=== PATIENT | male | born 1955 | race Caucasian/White ===

== ENCOUNTER → 2024-10-28 | Outpatient (CLI) | payer MEDICARE, MEDICAID, SELFPAY ==
--- NOTE | 2024-10-28 08:01 | CT_ITS ---
PROCEDURE: CHEST WITHOUT CONTRAST 10/28/2024 REASON FOR EXAM: LUNG NODULE History of COPD. Long-time smoker. TECHNIQUE: Chest CT without contrast. Coronal and Sagittal reconstruction series were provided. One or more dose reduction techniques were used (e.g., Automated exposure control, adjustment of the mA and/or kV according to patient size, use of iterative reconstruction technique RADIATION DOSE SUMMARY: CTDlvol: 19.85 mGy DLP: 753.83 mGycm COMPARISON: None FINDINGS: Hardware: None Lymph nodes: Small benign-appearing mediastinal lymph nodes. Heart and Vasculature: The heart is not enlarged. Atherosclerotic calcifications of the thoracic aorta. Thoracic aorta and pulmonary arteries have normal contours; noncontrast technique limits evaluation. Coronary Artery Calcifications: Present Lungs and Airways: There is a 6.3 mm non calcified nodule in the posterolateral aspect of the left lower lobe as seen on axial image number 72 and coronal image number 181. Mild scarring at the lung bases. Pleura: No pleural effusion. Upper Abdomen: Hiatal hernia. Bones: Degenerative changes of the thoracic spine. CT/Chest without Contrast IMPRESSION: Coronary artery calcification (CAC) is is present 6.3 mm noncalcified nodule in the posterolateral aspect of the left lower lobe as seen on axial image number 72 six-month follow-up examination recommended. Reading Location: [place] [id number]
== END | disposition home or self-care (01) ==
LOC: CT 07:56
PROVIDERS: PCP General Practice; Referring Provider Internal Medicine Critical Care Medicine; Visit Provider Internal Medicine Critical Care Medicine
DX: R91.1 Solitary pulmonary nodule (principal); R06.09 Other forms of dyspnea; F17.210 Nicotine dependence, cigarettes, uncomplicated
CPT/HCPCS: 71250

== ENCOUNTER → 2024-10-31 | Outpatient (CLI) | payer MEDICARE, MEDICAID, SELFPAY | END | disposition home or self-care (01) | LOC: PSN 09:07 | PROVIDERS: PCP General Practice; Referring Provider Internal Medicine Critical Care Medicine; Visit Provider Internal Medicine Critical Care Medicine | DX: R06.09 Other forms of dyspnea (principal); F17.210 Nicotine dependence, cigarettes, uncomplicated | CPT/HCPCS: 94060; 94726; 94729 ==

== ENCOUNTER → 2024-11-04 | Outpatient (CLI) | payer MEDICARE, MEDICAID, SELFPAY ==
[2024-11-04 12:30] VITALS: PULSE 79; PULSE 80; PULSE 81; O2SAT 94; O2SAT 95; O2SAT 96; O2SAT 97
--- NOTE | 2024-11-04 12:49 | CPS ---
During minutes 1,3 and 4 pt needed to sit on his rollator for approximately 20 to 30 seconds. Pt stated he needed to rest because of his legs feeling tired. Pt denied any S.O.B.. At minute 5 pt did rest on his rollator for the entire minute. Pt once again denied S.O.B. and stated it was for his legs being weak.
--- NOTE | 2024-11-05 12:56 | PCM.PSN.6M ---
PSN 6 Minute Walk Test 6 Minute Walk Test 6 Minute Walk Test: 6 Minute Walk Test PSN:6-Minute Walk Test Start: 11/04/24 12:45 Freq: Status: Active Protocol: [id number] Document 11/04/24 12:[address] [facility] (Rec: 11/04/24 12:[address] [facility] [id number]) 6 Minute Walk Test Date Performed 11/04/24 Time Performed 12:30 Height 5 ft 11 in Weight: 260 lb Weight in Pounds [address]: Assistive device Walker used: Pre-test Oxygen Delivery Room Air Method Pulse Ox (%) 94 Pulse Rate (60-100 80 beats/min) Dyspnea Jose G Scale ( 0 0-10) Exertion Jose G Scale 6 (6-20) 1st minute Oxygen Delivery Room Air Method Pulse Ox (%) 95 Pulse Rate (60-100 81 beats/min) Dyspnea Jose G Scale ( 0 0-10) Number of Rests 1 Taken 2nd minute Oxygen Delivery Room Air Method Pulse Ox (%) 94 Pulse Rate (60-100 81 beats/min) 3rd minute Oxygen Delivery Room Air Method Pulse Ox (%) 95 Pulse Rate (60-100 81 beats/min) Dyspnea Jose G Scale ( 0 0-10) Number of Rests 1 Taken 4th minute Oxygen Delivery Room Air Method Pulse Ox (%) 94 Pulse Rate (60-100 81 beats/min) Dyspnea Jose G Scale ( 0 0-10) Number of Rests 1 Taken 5th minute Oxygen Delivery Room Air Method Number of Rests 1 Taken 6th minute Oxygen Delivery Room Air Method Pulse Ox (%) 96 Pulse Rate (60-100 81 beats/min) Dyspnea Jose G Scale ( 0 0-10) Exertion Jose G Scale 13 (6-20) Post-test Oxygen Delivery Room Air Method Pulse Ox (%) 97 Pulse Rate (60-100 79 beats/min) Full Laps Walked 5 Partial Lap, Number 10 of Tiles Walked Total Distance 305 Walked (ft) 11/04/24 12:49 [facility]iopulmonary Services by Bianca Cornejo During minutes 1,3 and 4 pt needed to sit on his rollator for approximately 20 to 30 seconds. Pt stated he needed to rest because of his legs feeling tired. Pt denied any S.O.B.. At minute 5 pt did rest on his rollator for the entire minute. Pt once again denied S.O.B. and stated it was for his legs being weak. Initialized on 11/04/24 12:49 - END OF NOTE Interpretation Interpretation: The patient ambulated 305 feet over the course of 6 minutes beginning on room air with the use of a walker. Pretesting oxygen saturation was noted to be 94% on room air. With ambulation, the fab oxygen saturation was 94%. Although there was evidence of impaired walk distance, there was no significant exertional oxygen desaturation. Recommendations Recommendations: There is no indication for the use of supplemental oxygen at this time.
== END | disposition home or self-care (01) ==
LOC: PSN 12:09
PROVIDERS: PCP General Practice; Referring Provider Internal Medicine Critical Care Medicine; Visit Provider Internal Medicine Critical Care Medicine
DX: R06.09 Other forms of dyspnea (principal); F17.210 Nicotine dependence, cigarettes, uncomplicated
CPT/HCPCS: 94618